=== PATIENT | male | born 1970 | race Two or more races ===

== ENCOUNTER 2024-01-07 19:54 | Emergency (ER) | payer SELFPAY ==
[~2024-01-07] VITALS: Ht 170.2 cm; Wt 89.5 kg
[2024-01-07 20:05] VITALS: BP 137/69; PULSE 68; RESP 16; TEMP 98.7
[2024-01-07] MEDS: PredniSONE 20 MG TABLET PO ONE (22:42)
[2024-01-07] MEDS: DiphenhydrAMINE HCL 25 MG CAPSULE PO ONE (22:43)
[2024-01-07] MEDS ORDERED: PRED-554 PO (22:43)
[2024-01-07] MEDS ORDERED: DIPH25CA85 PO (22:45)
== END 2024-01-07 23:01 | disposition home or self-care (01) ==
LOC: EMS 19:57
DX: L25.9 Unspecified contact dermatitis, unspecified cause (principal)
CPT/HCPCS: 99283; J7512